=== PATIENT | female | born 1955 | race Caucasian/White ===

== ENCOUNTER 2020-05-17 09:30 | Outpatient (REF) | payer MEDICARE, OTHER, SELFPAY ==
--- NOTE | 2020-05-17 09:37 | MM_ITS ---
EXAMINATION: BONE DENSITOMETRY CLINICAL INDICATION: Menopausal. COMPARISON: This is the patient's baseline examination. TECHNIQUE: Using a TV Compass DXA System (software version: 13.1) manufactured by [employer], dual-energy x-ray absorptiometry was performed of the lumbar spine and left hip. The images are of good technical quality. Summary results are attached. FINDINGS: AP SPINE L1-L4: BMD 0.933 g/cm2, Z-score -0.3, T-score -2.1, osteopenia. LEFT FEMUR, NECK: BMD 1.007 g/cm2, Z-score 1.4, T-score -0.2, normal. LEFT FEMUR, TOTAL: BMD 0.976 g/cm2, Z-score 1.1, T-score -0.3, normal. IDENTIFIED RISK FACTORS: Early menopause, secondary osteoporosis, family history (parental hip fracture), hysterectomy. HISTORY OF FRACTURE: None listed. MEDICATIONS: Calcium supplements or multivitamin, vitamin D, ERT/SERMS. MM/XR DEXA axial skeleton IMPRESSION: 1. DIAGNOSIS: Osteopenia based on the lowest T-score value of -2.1 in the lumbar spine applying World Health Organization criteria. 2. 10-YEAR FRACTURE RISK PREDICTION, FRAX: Major osteoporotic fracture (clinical spine, forearm, hip or shoulder) 13.2%. Hip fracture 0.5%. 3. Treatment Recommendations: NOF guidelines recommend consideration for treatment in postmenopausal women and men age 50 and older presenting with the following: -A hip or vertebral (clinical or morphometric) fracture. -T-score less than or equal to -2.5 at the femoral neck or spine after appropriate evaluation to exclude secondary causes. -Low bone mass at the hip or spine and a 10-year fracture probability by FRAX of greater than or equal to 3% for hip fracture or greater than or equal to 20% for major osteoporotic fracture based on the [place] adapted WHO algorithm. 4. Other Recommendations: All treatment decisions require clinical judgment and consideration of individual patient factors, including patient preferences, comorbidities, previous drug use, risk factors not captured in the FRAX model (e.g. frailty, falls, vitamin D deficiency, increased bone turnover, interval significant decline in bone density) and possible under or overestimation of fracture risk by FRAX. Additional medical evaluation for secondary cause of low bone mineral density may be appropriate. FUTURE SCAN RECOMMENDATION: People with diagnosed cases of osteoporosis or at high risk for fracture should have regular bone mineral density tests. For patients eligible for Medicare, routine testing is allowed once every 2 years. The testing frequency can be increased to one year for patients who have rapidly progressing disease, those who are receiving or discontinuing medical therapy to restore bone mass, or have additional risk factors.
== END 2020-05-17 09:31 | disposition home or self-care (01) ==
LOC: HO.MAMMO 09:30
PROVIDERS: PCP Internal Medicine; Visit Provider Internal Medicine
DX: Z13.89 Encounter for screening for other disorder (principal)
CPT/HCPCS: 77080

== ENCOUNTER 2020-05-17 10:11 | Outpatient (REF) | payer MEDICARE, OTHER, SELFPAY ==
[2020-05-17 14:50] LABS: Alanine Aminotransferase 14 U/L (0-31); Aspartate Amino Transferase 19 U/L (5-31); Cholesterol 188 mg/dL; HDL Cholesterol 73 mg/dL; LDL Cholesterol Calculated 105 mg/dl; Triglycerides 53 mg/dL
[2020-05-17 15:10] LABS: Vitamin D 25-OH Total 52.1 ng/mL (>30)
== END 2020-05-17 10:12 | disposition home or self-care (01) ==
LOC: HO.10HDL 10:11
PROVIDERS: Visit Provider Internal Medicine
DX: E78.5 Hyperlipidemia, unspecified (principal); M81.8 Other osteoporosis without current pathological fracture
CPT/HCPCS: 77080; 80061; 82306; 84450; 84460

== ENCOUNTER 2021-01-17 06:07 | Outpatient (REF) | payer MEDICARE, OTHER, SELFPAY ==
[2021-01-17 12:22] LABS: Alanine Aminotransferase 16 U/L (0-31); Anion Gap 14 (12-20); Aspartate Amino Transferase 19 U/L (5-31); Blood Urea Nitrogen 13 mg/dL (9-16); Calcium 9.5 mg/dL (8.4-10.2); Carbon Dioxide 26 mmol/L (22-29); Chloride 106 mmol/L (96-108); Cholesterol 209 mg/dL; Estimated Glomerular Filt Rate > 60; Glucose Fasting 94 mg/dL (60-99); HDL Cholesterol 70 mg/dL; LDL Cholesterol Calculated 123 mg/dl; Sodium 142 mmol/L (135-145); Triglycerides 82 mg/dL
[2021-01-17 12:35] LABS: Vitamin D 25-OH Total 45.7 ng/mL (>30)
== END 2021-01-17 06:08 | disposition home or self-care (01) ==
LOC: HO.HMGCLDS 06:07
PROVIDERS: PCP Internal Medicine; Visit Provider Internal Medicine
DX: E78.5 Hyperlipidemia, unspecified (principal); M85.88 Other specified disorders of bone density and structure, other site; I10 Essential (primary) hypertension; Z78.0 Asymptomatic menopausal state
CPT/HCPCS: 36415; 80048; 80061; 82306; 84450; 84460

== ENCOUNTER 2021-06-15 07:43 | Day surgery (SDC) | payer MEDICARE, OTHER, SELFPAY ==
[2021-06-06 16:04] VITALS: BMI 24.4
--- NOTE | 2021-06-14 12:20 | HO.ANESPROP2 ---
Documented by User: Rose Tomas NP 06/14/21 12:21 HPI - Anesthesia Eval Consult details Narrative: 66yo F for Colonoscopy PMFSH Active Problems Active Problems: All Active Problems (Updated 01/22/21 @ 08:55 by Lilliana Dyer MD) Conjunctivitis (Acute) Osteopenia of lumbar spine (Acute) Dyslipidemia (Acute) Past Medical History Medical History Dyslipidemia Osteopenia of lumbar spine Tubular adenoma of colon Family History Family History Father Heart disease CAD (coronary artery disease) Hx of CABG Mother Arthritis Sister Breast cancer Ovarian cancer Sister CAD (coronary artery disease) Sister No problems noted. Brother No problems noted. Brother No problems noted. Brother Diabetes mellitus Brother Diabetes mellitus Surgical History Surgical History History of partial hysterectomy Hx of colonoscopy Social History Social History Alcohol intake: never Patient Tobacco Use Status: Former Tobacco user Tobacco use type: Cigarette Cigarette Packs Per Day: 1.5 Cigarettes Per Day: 10 Years Smoked: 15 e-Cigarette/Vaping Use: Never Used Second Hand Smoke Exposure: No Use of substances other than those prescribed or required for medical reasons: No Advance Directives: No Advance Directives Information Provided: Yes Meds Allergies Allergy/AdvReac Type Severity Reaction Status Date / Time No Known Allergies Allergy Verified 06/15/21 08:18 Home Medications Medication Instructions Recorded Confirmed Last Taken Type cholecalciferol (vitamin D3) 50 50 mcg PO DAILY 01/22/21 01/22/21 Unknown History mcg (2,000 unit) capsule Exam Exam Date and Time: June 14, 2021 1220 Height,Weight and Vital Signs: Height 5 ft 3 in Weight 62.596 kg Assessment and Plan Assessment Anesthesia Assessment: Chart Reviewed Documented by User: Lissy Moscoso MD 06/15/21 09:04 [facility] Past Medical History Medical History Dyslipidemia Osteopenia of lumbar spine Tubular adenoma of colon Family History Family History Father Heart disease CAD (coronary artery disease) Hx of CABG Mother Arthritis Sister Breast cancer Ovarian cancer Sister CAD (coronary artery disease) Sister No problems noted. Brother No problems noted. Brother No problems noted. Brother Diabetes mellitus Brother Diabetes mellitus Family history of problems with anesthesia: No Surgical History Surgical History History of partial hysterectomy Hx of colonoscopy History of Problems with Anesthesia: No Social History Social History Alcohol intake: never Patient Tobacco Use Status: Former Tobacco user Tobacco use type: Cigarette Cigarette Packs Per Day: 1.5 Cigarettes Per Day: 10 Years Smoked: 15 e-Cigarette/Vaping Use: Never Used Second Hand Smoke Exposure: No Use of substances other than those prescribed or required for medical reasons: No Advance Directives: No Advance Directives Information Provided: Yes Meds Allergies Allergy/AdvReac Type Severity Reaction Status Date / Time No Known Allergies Allergy Verified 06/15/21 08:18 Home Medications Medication Instructions Recorded Confirmed Last Taken Type cholecalciferol (vitamin D3) 50 50 mcg PO DAILY 01/22/21 01/22/21 Unknown History mcg (2,000 unit) capsule Exam Height,Weight and Vital Signs: Height 5 ft 3 in Weight 62.596 kg Vital Signs Temp Pulse Resp BP Pulse Ox 06/15/21 08:29 97.3 F 77 20 173/80 H 98 Airway Mallampati Class: II TM Dist: >3cm Neck ROM: Full Denture: Upper Heart: RRR Lungs: CTAB Assessment and Plan Assessment Anesthesia Assessment: Anesthesia Plan Discussed Final Anesthetic Review Family History of Problems with Anesthesia: No History of Problems with Anesthesia: No NPO: Yes ASA Class: II Final Preanesthetic Review: No Changes in Pt Med Stat, Meds/Allgs Chart Reviewed, Consent Obtained/Reviewed and Anes Risks/Benef Reviewed Patient Risk: Low Procedure Risk: Low Assessment/Block/Sedation in SS: Assess/Block/Sedation-SS Anesthetic Plan Anesthetic Plan: MAC: Disposition: Standard PACU
[2021-06-15 08:29] VITALS: BP 173/80; PULSE 77; RESP 20; TEMP 36.3; O2SAT 98
[2021-06-15] MEDS: Lactated Ringers 1,000 ML 100 ML IVCONT (08:40)
--- NOTE | 2021-06-15 09:16 | MHC.SHP ---
Pre-Procedural Eval Section A Date of Service: 06/15/21 Section B Chief Complaint: screening Details of Present Illness: see h& p no changes Relevant Family History (Specify if Yes): No Relevant Social History: None Present Medications: see Short Stay Collaborative assessment Medical History: No relevant PMH History of Previous Operations: No relevant previous surgery Allergies: Allergies Allergy/AdvReac Type Severity Reaction Status Date / Time No Known Allergies Allergy Verified 06/15/21 08:18 Review of Systems Sugical H&P ROS: Negative: Constitution, Cardiovascular, Respiratory, Neurological, Psychiatric, Hem-Onc, Allergic/Immunologic, Gastrointestinal, Genitourinary, Musculoskeletal, Integumentary, Endocrine and Eyes/Ears/Nose/Throat Exam Surgical H&P Exam: Normal: HEENT, Normal: Heart, Normal: Lungs, Normal: Extremities, Normal: Abdomen, Normal: Skin and Normal: Neurological Plan I have reviewed the history and physical and performed a pertinent physical examination on my patient. No changes have occurred unless specified.
--- NOTE | 2021-06-15 09:44 | P.BOP_ITS ---
Brief Operative Note Date of Service: 06/15/21 Pre-op diagnosis: screening Post-op diagnosis: same (colon polyp) Procedure: colonoscopy Surgeon: Manny Bates Anesthesia: MAC Was an Doll Wig Hackler used for this Procedure?: No Estimated blood loss (mL): 0 Pathology: other (polyp 15 cm) Condition: stable Disposition: PACU
[2021-06-15 09:50] VITALS: BP 103/51; PULSE 73; RESP 16; TEMP 36.6; O2SAT 98
[2021-06-15 10:05] VITALS: BP 135/71; PULSE 70; RESP 18; TEMP 36.6; O2SAT 98
--- NOTE | 2021-06-15 10:41 | OP_ITS ---
SURGEON: Manny Bates MD INDICATIONS: Colon cancer screening and prior history of adenomatous colon polyps. PREOPERATIVE DIAGNOSIS: POSTOPERATIVE DIAGNOSIS: PROCEDURE PERFORMED: Colonoscopy to the terminal ileum with snare polypectomy. ESTIMATED BLOOD LOSS: COMPLICATIONS: ANESTHESIA: ASSISTANTS: SPECIMENS: MEDICATIONS: Monitored anesthesia care. DESCRIPTION OF PROCEDURE: History and physical performed. The risks and benefits of the procedure were explained to the patient. Informed consent was obtained. The patient was placed in the left lateral decubitus position. A digital rectal exam was performed and was found to be normal. The Olympus pediatric video colonoscope was introduced into the rectum and advanced to the cecum without difficulty. The cecum was identified by transillumination, palpation, and identification of ileocecal valve. Examination was performed and the scope was removed. She tolerated the procedure well and was returned to recovery area in stable condition. FINDINGS: The terminal ileum was normal. The visualized colonic mucosa was normal. The quality of the prep was good. A single polyp at 15 cm measuring 6 mm was snared and recovered via suction. No other polyps were identified. Retroflexed examination was normal. There was scattered diverticulosis in the sigmoid and a few diverticula in the right colon. IMPRESSION: Colon polyp. RECOMMENDATION: Follow up the biopsy results. MD TANYA Curry/[place] / [id number]
== END 2021-06-15 11:04 | disposition home or self-care (01) ==
PROVIDERS: PCP Internal Medicine; Visit Provider Internal Medicine Gastroenterology
PROC: 0DJD8ZZ Inspection of Lower Intestinal Tract, Via Natural or Artificial Opening Endoscopic (ICD-10-PCS; CPT 45378; principal; 2021-06-15 09:00)
DX: Z12.11 Encounter for screening for malignant neoplasm of colon (principal); Z86.010 Personal history of colon polyps; D12.7 Benign neoplasm of rectosigmoid junction; K57.30 Diverticulosis of large intestine without perforation or abscess without bleeding; M85.88 Other specified disorders of bone density and structure, other site; E78.00 Pure hypercholesterolemia, unspecified; Z79.899 Other long term (current) drug therapy
CPT/HCPCS: 45385; 88305

== ENCOUNTER 2021-08-30 06:05 | Outpatient (REF) | payer MEDICARE, OTHER, SELFPAY ==
[2021-08-30 11:54] LABS: Alanine Aminotransferase 14 U/L (0-31); Aspartate Amino Transferase 18 U/L (5-31); Cholesterol 177 mg/dL; HDL Cholesterol 58 mg/dL; LDL Cholesterol Calculated 107 mg/dl; Triglycerides 61 mg/dL
== END 2021-08-30 06:06 | disposition home or self-care (01) ==
LOC: HO.HMGCLDS 06:05
PROVIDERS: PCP Internal Medicine; Visit Provider Internal Medicine
DX: E78.5 Hyperlipidemia, unspecified (principal); M85.88 Other specified disorders of bone density and structure, other site; Z78.0 Asymptomatic menopausal state
CPT/HCPCS: 36415; 80061; 82306; 84450; 84460

== ENCOUNTER 2021-09-28 14:30 | Outpatient (REF) | payer MEDICARE, OTHER, SELFPAY ==
--- NOTE | ~2021-09-28 | MM_ITS ---
EXAMINATION: MM SCREENING DIGITAL BREAST TOMOSYNTHESIS, BILATERAL CLINICAL INFORMATION: Screening. Asymptomatic. The lifetime risk of breast cancer based on the Tyrer-Cuzick Model is 10.3%. COMPARISON: Mammography: April 12, 2020 and studies dating back to March 02, 2018 TECHNIQUE: Digital breast tomosynthesis is performed in both the craniocaudal and mediolateral oblique views along with computer-aided detection (CAD). Synthesized 2D images are generated from the tomosynthesis. FINDINGS: The breasts are heterogeneously dense, which may obscure small masses (ACR BI-RADS breast composition Category c). There are no significant masses, abnormal calcifications, or other abnormalities. MM/MM tomosynthesis screening BI IMPRESSION: There are no significant changes from prior study. ASSESSMENT: BI-RADS 1: Negative RECOMMENDATION: Routine annual mammography screening. This patient's information was entered into a reminder system with a target due date for their next mammogram.
== END 2021-09-28 14:31 | disposition home or self-care (01) ==
LOC: HO.MAMMO 14:30
PROVIDERS: PCP Internal Medicine; Visit Provider Internal Medicine
DX: Z12.31 Encounter for screening mammogram for malignant neoplasm of breast (principal)
CPT/HCPCS: 77063; 77067

== ENCOUNTER 2022-03-04 06:09 | Outpatient (REF) | payer MEDICARE, OTHER, SELFPAY ==
[2022-03-04 11:19] LABS: MANUAL DIFF FLAG NO
[2022-03-04 11:33] LABS: Basophils Percent Auto 0.6 % (0-2); Eosinophils Absolute Auto 0.1 X10*3/uL (0.0-0.4); Eosinophils Percent Auto 1.5 % (0-4); Hematocrit 41.6 % (37.0-47.0); Hemoglobin 13.8 g/dl (12.0-16.0); Imm Gran Abs Auto 0.03 X10*3/uL (0.00-0.03); Imm Gran Pct Auto 0.4 % (0.0-0.4); Lymphocytes Absolute Auto 2.6 X10*3/uL (1.2-4.9); Lymphocytes Percent Auto 35.8 % (20-40); Mean Corpuscular HGB Conc 33.2 g/dl (31.0-35.0); Mean Corpuscular Hemoglobin 30.6 pg (27.0-33.0); Mean Corpuscular Volume 92.2 fL (80.0-98.0); Mean Platelet Volume 10.4 fL (9.4-12.3); Monocytes Absolute Auto 0.6 X10*3/uL (0.1-1.2); Monocytes Percent Auto 7.8 % (2-11); Neutrophils Absolute Auto 3.9 x10*3/uL (2.0-8.3); Neutrophils Percent Auto 53.9 % (45-73); Platelet Count 262 X10*3/uL (160-400); Red Blood Count 4.51 X10*6/uL (4.20-5.50); Red Cell Distribution Width 12.5 % (11.0-16.0); White Blood Count 7.2 X10*3/uL (4.8-10.8)
[2022-03-04 12:06] LABS: Alanine Aminotransferase 13 U/L (0-31); Anion Gap 15 (12-20); Aspartate Amino Transferase 15 U/L (5-31); Blood Urea Nitrogen 12 mg/dL (9-16); Calcium 9.3 mg/dL (8.4-10.2); Carbon Dioxide 28 mmol/L (22-29); Chloride 102 mmol/L (96-108); Cholesterol 169 mg/dL; Estimated Glomerular Filt Rate > 60; Glucose Fasting 92 mg/dL (60-99); HDL Cholesterol 65 mg/dL; LDL Cholesterol Calculated 90 mg/dl; Potassium 3.8 mmol/L (3.3-5.1); Sodium 141 mmol/L (135-145); Triglycerides 72 mg/dL
[2022-03-04 12:14] LABS: Vitamin D 25-OH Total 57.9 ng/mL (>30)
== END 2022-03-04 06:10 | disposition home or self-care (01) ==
LOC: HO.HMGCLDS 06:09
PROVIDERS: PCP Internal Medicine; Visit Provider Internal Medicine
DX: M85.88 Other specified disorders of bone density and structure, other site (principal); E78.5 Hyperlipidemia, unspecified
CPT/HCPCS: 36415; 80048; 80061; 82306; 84450; 84460; 85025

== ENCOUNTER 2022-05-24 07:58 | Outpatient (REF) | payer MEDICARE, OTHER, SELFPAY ==
--- NOTE | ~2022-05-24 | MM_ITS ---
EXAMINATION: BONE DENSITOMETRY CLINICAL INDICATION: Osteopenia. COMPARISON: Baseline BD dated 05/17/2012. TECHNIQUE: Using a [employer] DXA System (software version: 13.1) manufactured by [employer], dual-energy x-ray absorptiometry was performed of the lumbar spine and left hip. The images are of good technical quality. Summary results are attached. FINDINGS: AP SPINE L1-L4: Current: BMD 0.935 g/cm2, Z-score -0.2, T-score -2.0, osteopenia, 0.2% increase from baseline (<5% change is not significant). Baseline: BMD 0.933 g/cm2. LEFT FEMUR, NECK: Current: BMD 0.976 g/cm2, Z-score -1.3, T-score -0.4, normal. Baseline: BMD 1.007 g/cm2. LEFT FEMUR, TOTAL: Current: BMD 0.927 g/cm2, Z-score 0.9, T-score -0.6, normal, 5.0% decrease from baseline (<5% change is not significant). Baseline: BMD 0.976 g/cm2. IDENTIFIED RISK FACTORS: Early menopause, family history (parent hip fracture), hysterectomy, osteoporosis, secondary osteoporosis. HISTORY OF FRACTURE: None listed. MEDICATIONS: Calcium, vitamin D, ERT/SERMS. MM/XR DEXA axial skeleton IMPRESSION: 1. DIAGNOSIS: Osteopenia based on the lowest T-score value of -2.0 in the lumbar spine applying World Health Organization criteria. 2. 10-YEAR FRACTURE RISK PREDICTION, FRAX: Not performed in this patient on estrogen or bone building treatments. 3. Treatment Recommendations: NOF guidelines recommend consideration for treatment in postmenopausal women and men age 50 and older presenting with the following: -A hip or vertebral (clinical or morphometric) fracture. -T-score less than or equal to -2.5 at the femoral neck or spine after appropriate evaluation to exclude secondary causes. -Low bone mass at the hip or spine and a 10-year fracture probability by FRAX of greater than or equal to 3% for hip fracture or greater than or equal to 20% for major osteoporotic fracture based on the [place] adapted WHO algorithm. 4. Other Recommendations: All treatment decisions require clinical judgment and consideration of individual patient factors, including patient preferences, comorbidities, previous drug use, risk factors not captured in the FRAX model (e.g. frailty, falls, vitamin D deficiency, increased bone turnover, interval significant decline in bone density) and possible under or overestimation of fracture risk by FRAX. Additional medical evaluation for secondary cause of low bone mineral density may be appropriate. FUTURE SCAN RECOMMENDATION: People with diagnosed cases of osteoporosis or at high risk for fracture should have regular bone mineral density tests. For patients eligible for Medicare, routine testing is allowed once every 2 years. The testing frequency can be increased to one year for patients who have rapidly progressing disease, those who are receiving or discontinuing medical therapy to restore bone mass, or have additional risk factors.
== END 2022-05-24 07:59 | disposition home or self-care (01) ==
LOC: HO.MAMMO 07:58
PROVIDERS: PCP Internal Medicine; Visit Provider Internal Medicine
DX: Z13.820 Encounter for screening for osteoporosis (principal); Z78.0 Asymptomatic menopausal state; M85.88 Other specified disorders of bone density and structure, other site
CPT/HCPCS: 77080

== ENCOUNTER 2022-07-09 11:18 | Outpatient (REF) | payer MEDICARE, OTHER, SELFPAY ==
[2022-07-09 12:13] LABS: Influenza A PCR NEGATIVE (Negative); Influenza B PCR NEGATIVE (Negative); Resp Syncy Virus RNA Qual PCR NEGATIVE (Negative); SARS COV2 PCR INHOUSE NEGATIVE (Negative)
== END 2022-07-09 11:19 | disposition home or self-care (01) ==
LOC: HO.LNP 11:18
PROVIDERS: Visit Provider Physician Assistant
DX: Z20.822 Contact with and (suspected) exposure to COVID-19 (principal); B34.9 Viral infection, unspecified
CPT/HCPCS: 0241U

== ENCOUNTER 2022-09-02 07:04 | Outpatient (REF) | payer MEDICARE, SELFPAY ==
[2022-09-02 11:30] LABS: Alanine Aminotransferase 16 U/L (0-31); Aspartate Amino Transferase 20 U/L (5-31); Cholesterol 179 mg/dL; HDL Cholesterol 60 mg/dL; LDL Cholesterol Calculated 105 mg/dl; Triglycerides 70 mg/dL
[2022-09-02 11:36] LABS: Vitamin D 25-OH Total 55.5 ng/mL (>30)
== END 2022-09-02 07:05 | disposition home or self-care (01) ==
LOC: HO.HMGCLDS 07:04
PROVIDERS: PCP Internal Medicine; Visit Provider Internal Medicine
DX: M85.88 Other specified disorders of bone density and structure, other site (principal); N95.9 Unspecified menopausal and perimenopausal disorder; E78.5 Hyperlipidemia, unspecified
CPT/HCPCS: 36415; 80061; 82306; 84450; 84460

== ENCOUNTER 2022-10-04 16:21 | Outpatient (REF) | payer MEDICARE, SELFPAY ==
--- NOTE | ~2022-10-04 | MM_ITS ---
EXAMINATION: MM SCREENING DIGITAL BREAST TOMOSYNTHESIS, BILATERAL CLINICAL INFORMATION: Screening. Asymptomatic. The lifetime risk of breast cancer based on the Tyrer-Cuzick Model is 10%. COMPARISON: Mammography: 09/28/2021, 04/12/2020; outside mammography 03/03/2019 ([facility]). TECHNIQUE: Digital breast tomosynthesis is performed in both the craniocaudal and mediolateral oblique views along with computer-aided detection (CAD). Synthesized 2D images are generated from the tomosynthesis. FINDINGS: The breasts are heterogeneously dense, which may obscure small masses (ACR BI-RADS breast composition Category c). There are no significant masses, abnormal calcifications, or other abnormalities. Parenchymal pattern is similar to prior studies. There is no developing density or architectural abnormality. The axilla and skin contours are unremarkable. No significant changes. MM/MM tomosynthesis screening BI IMPRESSION: No mammographic evidence of malignancy. ASSESSMENT: BI-RADS 1: Negative RECOMMENDATION: Routine annual mammography screening. This patient's information was entered into a reminder system with a target due date for their next mammogram.
== END 2022-10-04 16:22 | disposition home or self-care (01) ==
LOC: HO.MAMMO 16:21
PROVIDERS: PCP Internal Medicine; Visit Provider Internal Medicine
DX: Z12.31 Encounter for screening mammogram for malignant neoplasm of breast (principal)
CPT/HCPCS: 77063; 77067

== ENCOUNTER 2023-03-04 07:55 | Outpatient (AMB) | payer MEDICARE, SELFPAY ==
[2023-03-04 07:58] VITALS: BP 130/70; PULSE 88; O2SAT 98; BMI 23.7
--- NOTE | 2023-03-04 07:58 | MHC.PC.OV ---
Vital Signs 03/04/23 07:58 Height 5 ft 3 in Weight 134 lb BMI 23.7 BP 130/70 Blood Pressure Location Lt brachial Position Sitting Pulse 88 Pulse Source Pulse Oximeter Pulse Oximetry (%) 98 Oxygen Delivery Method Room Air Intake Visit Reasons: Annual PE Intake Note: pt is here for annual physical exam [employer] Operator Required: No Accompanied by: Self / Same As Patient Allergies No Known Allergies Allergy (Verified 03/04/23 08:05) Medication List - Last Reconciled 03/04/23 by Lilliana Dyer MD atorvastatin 10 mg PO DAILY cholecalciferol (vitamin D3) 50 mcg PO DAILY raloxifene 60 mg PO DAILY Tobacco use date assessed: 09/03/22 Fall risk assessment: No Falls in past year Last assessed Fall Risk: 03/04/23 Dental Screening Dental Screen Date: 03/04/23 Did you have a dental visit in the last 12 months?: Yes Did you have a dental problem in the last 6 months where you did not have access to dental care?: No Was dental information given to patient?: Patient has dentist HPI Annual PE HPI Details 67-year-old lady here today for physical exam. She has dyslipidemia currently on atorvastatin 10 mg daily, compliant with low-cholesterol diet and has been getting regular exercise. She also has osteopenia in the lumbar spine currently on raloxifene 60 mg daily and has been taking vitamin-D 3 at 50 mcg daily. She is up-to-date with her screening colonoscopy due again in 2025. Up-to-date with her regular eye exams, and goes to the dentist every 6 months for her routine dental prophylaxis. [facility] Medical History Dyslipidemia Osteopenia of lumbar spine Tubular adenoma of colon Surgical History History of partial hysterectomy Hx of colonoscopy Family History Father Heart disease CAD (coronary artery disease) Hx of CABG Mother Arthritis Sister Breast cancer Ovarian cancer Sister CAD (coronary artery disease) Sister No problems noted. Brother No problems noted. Brother No problems noted. Brother Diabetes mellitus Brother Diabetes mellitus Social History Housing: House Alcohol intake: never Patient Tobacco Use Status: Former Tobacco user Tobacco use type: Cigarette Cigarette Packs Per Day: 1.5 Cigarettes Per Day: 10 Years Smoked: 15 e-Cigarette/Vaping Use: Never Used Second Hand Smoke Exposure: No service: No Current occupational status: employed Cognitive needs: No Hearing needs: No Vision needs: No Female Reproductive History Menstrual Menopause type: surgical Questionnaire PHQ-9 Over the last 2 weeks, how often have you been bothered by any of the following problems? 1. Little interest or pleasure in doing things: not at all 2. Feeling down, depressed, or hopeless: not at all 3. Trouble falling or staying asleep, or sleeping too much: not at all 4. Feeling tired or having little energy: not at all 5. Poor appetite or overeating: not at all 6. Feeling bad about yourself - or that you are a failure or have let yourself or your family down: not at all 7. Trouble concentrating on things, such as reading the newspaper or watching television: not at all 8. Moving or speaking so slowly that other people could have noticed. Or the opposite - being so fidgety or restless that you have been moving around a lot more than usual: not at all 9. Thoughts that you would be better off or of hurting yourself in some way: not at all Total score: 0 Depression Screening Interpretation: Negative 35565 - PHQ-9 Billing: Yes Source: Developed by Drs. Xavi Garcia, Aide Sheehan, Chavo Sewell and colleagues, with an educational yordan from [employer]. Thrive Questionnaire Date Thrive assessed: 03/04/23 I am a: Patient What is your living situation today?: I have a steady place to live Within the past 12 months, did the food you bought not last and you didn't have the money to get more?: Never true Within the past 12 months, did you worry whether your food would run out before you got money to buy more?: Never true Do you have trouble paying for medicines?: No Do you have trouble getting transportation to medical appointments?: No Do you have trouble paying your heating and electricity bill?: No Do you have trouble taking care of your child, family member or friend?: No Do you have trouble with day-to-day activities such as bathing, preparing meals, shopping, managing finances, etc.?: No Are you currently unemployed and looking for a job?: No Are you interested in more education?: No Please select the resources that you would like help with: None Currently or been in a relationship where the following occur: no concerns reported AUDIT C Alcohol Use Questionnaire (AUDIT-C) 1. How often do you have a drink containing alcohol?: Never Total Score: 0 GRAYSON-7 AMB Questionnaire GRAYSON-7 Date GRAYSON - 7 assessed: 03/04/23 Feeling nervous, anxious, or on edge: 0 = Not at all Not being able to stop or control worryin = Not at all Worrying too much about different things: 0 = Not at all Trouble relaxin = Not at all Being so restless that it is hard to sit still: 0 = Not at all Becoming easily annoyed or irritable: 0 = Not at all Feeling afraid as if something awful might happen: 0 = Not at all Total GRAYSON-7 score (0-4 normal; 5-9 mild; 10-14 moderate; 15-21 severe): 0 Source: Developed by Drs. Xavi Garcia, Aide Sheehan, Chavo Sewell and colleagues, with an educational yordan from [employer]. GRAYSON-7 Assessment Billing GRAYSON-7 Assessment Tool: GRAYSON-7 Assessment 35122 Review of Systems Const Denies body aches, Denies fatigue, Denies fever(s), Denies headache(s) and Denies weakness Eyes Details: sees Zoie Jason in [facility] with eye exam Denies change in vision ENT Denies dizziness, Denies headache(s), Denies nasal congestion, Denies nasal discharge and Denies sore throat Card Denies chest pain, Denies lightheadedness, Denies palpitations and Denies dyspnea Resp Denies chest congestion, Denies cough, Denies dyspnea and Denies wheezing GI Denies abdominal pain, Denies change in bowel habits and Denies heartburn Denies urinary frequency, Denies dysuria and Denies urinary urgency Musc Reports no additional complaints Skin/Breast Denies lesions and Denies rash Neuro Denies dizziness, Denies headache(s) and Denies weakness Psych Reports no additional complaints Endo Denies fatigue, Denies polydipsia, Denies polyuria and Denies palpitations Duane/Lymph Denies easy bruising Aller/Immun Denies seasonal rhinorrhea and Denies wheezing Physical exam (Primary Care) Vital Signs: Last Vital Signs Pulse 88 03/04/23 07:58 BP 130/70 03/04/23 07:58 Pulse Ox 98 03/04/23 07:58 Oxygen Delivery Method Room Air 03/04/23 07:58 BMI result Body Mass Index 23.7 Tobacco/Smoking Status: Tobacco use Status Tobacco use date assessed 09/03/22 03/04/23 08:01 Patient Tobacco Use Status Former Tobacco user 03/04/23 08:01 Tobacco use type Cigarette 03/04/23 08:01 e-Cigarette/Vaping Use Never Used 03/04/23 08:01 PHQ-9: PHQ-9 Score PHQ-9: Total score 0 03/04/23 08:04 Depression Screening Interpretation: Negative Thrive Assessment: Date of Thrive Assessment Date Thrive assessed 03/04/23 03/04/23 08:04 Currently or been in a relationship where the following occur: no concerns reported Const Other: Alert oriented x3, no acute distress, ambulatory normal gait Orientation/consciousness: patient oriented x3 HENMT Head: Yes atraumatic Ears: external ears normal, TM's normal bilaterally and EAC's normal General nose exam: Normal external nose present Face and sinus: Yes face symmetric Mouth: Normal oral and palatal mucosa present and moist mucous membranes Teeth and gingiva: dentures (Upper) Eyes General: appearance normal, both eyes and all related structures Neck Neck: Yes full ROM, Yes no lymphadenopathy and Yes supple Thyroid: Thyroid normal Chest Chest palpation & inspection: normal inspection of the chest Breast/axilla palpation: normal palpation of the breasts and normal palpation of the axillae Resp Effort & Inspection: normal respiratory effort and able to speak in complete sentences Auscultation: clear to auscultation bilaterally Cardio Palpation: normal PMI Rate: regular rate Rhythm: regular rhythm Heart sounds: S1 normal heart sound present and S2 normal heart sound present GI Palpation (GI): Soft to palpation, nontender, no guarding and no masses Auscultation: normal bowel sounds General: Yes deferred Back/Spine/Pelvis Back: No back tenderness Skin General skin exam: no rashes or lesions noted Neuro General: patient oriented x3, gait normal, moves all extremities, Normal light touch and pain sensation, no focal motor deficits and CN's II-XI intact bilaterally Extrem General: Yes full ROM, Yes no joint enlargement, Yes no pedal edema and Yes normal gait Psych Appearance: grossly normal Mental Status: mental status grossly normal Speech and movement: Normal speech and movement present Affect: normal affect Attitude: cooperative Assessment and Plan Assessment & Plan (1) Annual visit for general adult medical examination with abnormal findings: Code(s): Z00.01 - Encounter for general adult medical examination with abnormal findings Plan: Will check appropriate labs. Recommended dental visit every 6 months and regular eye exams, at least every 2 years. Take adequate calcium in diet and vitamin-D 3 at 2000 IU per cap once a day, in addition to weight-bearing exercises to help maintain good muscle tone and weight control. Instructed to do self-breast exam, and continue with yearly mammogram, currently up-to-date, up-to-date with her bone density scan, repeat due again in 2023. She is also up-to-date with her screening colonoscopy, and has had all her adult vaccinations, reminded to get the new COVID booster vaccine (2) Osteopenia of lumbar spine: Comment: DEXA scan 2021, showed a T-score of-2.0 and lumbar spine, normal in hips and left femoral neck Code(s): M85.88 - Other specified disorders of bone density and structure, other site Plan: Continue with vitamin-D 3 and raloxifene 60 mg daily in addition to doing regular weight-bearing exercise, repeat another bone density scan next year (3) Dyslipidemia: Code(s): E78.5 - Hyperlipidemia, unspecified Plan: Repeat fasting lipid panel ordered . Continue with atorvastatin 10 mg daily , in addition to adherence to low-cholesterol diet and regular exercise, at least 30 minutes 3 to 4 times a week. Advised patient to make healthy food choices, eat more fruits, vegetables, whole grains, wild caught fish and low-fat dairy. Limit amount of meat and fried or fatty food products, as well as processed foods and fast foods. Orders: Orders Alanine Aminotransferase Today E78.5 - Hyperlipidemia, unspecified, M85.88 - Other specified disorders of bone density and structure, other site, Z00.01 - Encounter for general adult medical examination with abnormal findings Aspartate Amino Transferase Today E78.5 - Hyperlipidemia, unspecified, M85.88 - Other specified disorders of bone density and structure, other site, Z00.01 - Encounter for general adult medical examination with abnormal findings Lipid Panel Today E78.5 - Hyperlipidemia, unspecified, M85.88 - Other specified disorders of bone density and structure, other site, Z00.01 - Encounter for general adult medical examination with abnormal findings Vitamin D 25-OH Total Today E78.5 - Hyperlipidemia, unspecified, M85.88 - Other specified disorders of bone density and structure, other site, Z00.01 - Encounter for general adult medical examination with abnormal findings Glucose Fasting Today E78.5 - Hyperlipidemia, unspecified, M85.88 - Other specified disorders of bone density and structure, other site, Z00.01 - Encounter for general adult medical examination with abnormal findings Medications: Refilled atorvastatin 10 mg PO DAILY 90 caps 3RF raloxifene 60 mg PO DAILY 90 caps 3RF Coding Level of Care Code Est Pt Prev Care >65y(42765) Diagnoses Annual visit for general adult medical examination with abnormal findings Z00.01 Osteopenia of lumbar spine M85.88 Dyslipidemia E78.5 Additional Codes GRAYSON-7 Assessment Billing - GRAYSON-7 Assessment Tool: GRAYSON-7 Assessment 37935 ([id number])
== END 2023-03-04 08:46 | disposition home or self-care (01) ==
PROVIDERS: PCP Internal Medicine; Visit Provider Internal Medicine
DX: Z00.01 Encounter for general adult medical examination with abnormal findings (principal); M85.88 Other specified disorders of bone density and structure, other site; E78.5 Hyperlipidemia, unspecified
CPT/HCPCS: 99397

== ENCOUNTER 2023-03-04 08:29 | Outpatient (REF) | payer MEDICARE, SELFPAY ==
[2023-03-04 11:50] LABS: Alanine Aminotransferase 15 U/L (0-31); Aspartate Amino Transferase 19 U/L (5-31); Cholesterol 156 mg/dL (<200); Glucose Fasting 113 mg/dL (60-99); HDL Cholesterol 48 mg/dL (>40); LDL Cholesterol Calculated 87 mg/dL (<100); Triglycerides 106 mg/dL (<150)
[2023-03-04 12:09] LABS: Vitamin D 25-OH Total 95.8 ng/mL (>30)
== END 2023-03-04 08:30 | disposition home or self-care (01) ==
LOC: HO.HMGCLDS 08:29
PROVIDERS: PCP Internal Medicine; Visit Provider Internal Medicine
DX: Z00.01 Encounter for general adult medical examination with abnormal findings (principal); E78.5 Hyperlipidemia, unspecified; M85.88 Other specified disorders of bone density and structure, other site
CPT/HCPCS: 36415; 80061; 82306; 82947; 84450; 84460

== ENCOUNTER 2023-10-10 07:27 | Outpatient (REF) | payer MEDICARE, SELFPAY | END 2023-10-10 07:28 | disposition home or self-care (01) | LOC: HO.MAMMO 07:27 | PROVIDERS: PCP Internal Medicine; Visit Provider Internal Medicine | DX: Z12.31 Encounter for screening mammogram for malignant neoplasm of breast (principal) | CPT/HCPCS: 77063; 77067 ==

== ENCOUNTER → 2023-10-10 07:45 | Outpatient (BNV) | payer MEDICARE, SELFPAY | PROVIDERS: PCP Internal Medicine; Visit Provider Radiology Diagnostic Radiology | DX: Z12.31 Encounter for screening mammogram for malignant neoplasm of breast (principal) | CPT/HCPCS: 77063; 77067 ==

== ENCOUNTER 2023-11-05 06:11 | Outpatient (REF) | payer MEDICARE, SELFPAY ==
[2023-11-05 10:52] LABS: Estimated Average Glucose 114 mg/dL; Hemoglobin A1c % 5.6 % (<6.0); Total Hemoglobin (HGBA1C) 3395.0271 umol/L
[2023-11-05 11:11] LABS: Alanine Aminotransferase 13 U/L (0-31); Anion Gap 12 (12-20); Aspartate Amino Transferase 18 U/L (5-31); Blood Urea Nitrogen 16 mg/dL (9-16); Calcium 9.2 mg/dL (8.4-10.2); Carbon Dioxide 29 mmol/L (22-29); Chloride 103 mmol/L (96-108); Cholesterol 176 mg/dL (<200); Estimated Glomerular Filt Rate > 60; Glucose Fasting 88 mg/dL (60-99); HDL Cholesterol 63 mg/dL (>40); LDL Cholesterol Calculated 100 mg/dL (<100); Potassium 3.7 mmol/L (3.3-5.1); Sodium 140 mmol/L (135-145); Triglycerides 65 mg/dL (<150)
== END 2023-11-05 06:12 | disposition home or self-care (01) ==
LOC: HO.HMGCLDS 06:11
PROVIDERS: PCP Internal Medicine; Visit Provider Internal Medicine
DX: M85.88 Other specified disorders of bone density and structure, other site (principal); E78.5 Hyperlipidemia, unspecified; R73.01 Impaired fasting glucose; Z78.0 Asymptomatic menopausal state
CPT/HCPCS: 36415; 80048; 80061; 82306; 83036; 84450; 84460

== ENCOUNTER 2023-11-07 08:56 | Outpatient (AMB) | payer MEDICARE, SELFPAY ==
[2023-11-07 09:42] VITALS: BP 138/70; PULSE 73; O2SAT 93; BMI 24.8
--- NOTE | 2023-11-07 09:42 | A.OFFPC_ITS ---
Vital Signs 11/07/23 09:42 Height 5 ft 3 in Weight 140 lb BMI 24.8 BP 138/70 Blood Pressure Location Lt brachial Position Sitting Pulse 73 Pulse Source Pulse Oximeter Pulse Oximetry (%) 93 Oxygen Delivery Method Room Air Intake Visit Reasons: 6 months follow-up Intake Note: Pt is here today for her 8 mo. f/u Allergies No Known Allergies Allergy (Verified 11/07/23 10:02) Medication List - Last Reconciled 11/07/23 by Lilliana Dyer MD atorvastatin 10 mg PO DAILY cholecalciferol (vitamin D3) 50 mcg PO DAILY raloxifene 60 mg PO DAILY Tobacco use date assessed: 11/07/23 Fall risk assessment: No Falls in past year Last assessed Fall Risk: 11/07/23 Dental Screening Dental Screen Date: 03/04/23 Did you have a dental visit in the last 12 months?: Yes Did you have a dental problem in the last 6 months where you did not have access to dental care?: No Was dental information given to patient?: Patient has dentist HPI HPI Comments History of Present Illness Details 68-year-old lady history of dyslipidemia and osteopenia of lumbar spine, here today for follow-up. She has been feeling well, with no complaints at present time. Last bone density done in 2021 showed presence of osteopenia in lumbar spine, due for a recheck. PFSH Medical History Tubular adenoma of colon Osteopenia of lumbar spine Dyslipidemia Surgical History Hx of colonoscopy History of partial hysterectomy Family History Father Heart disease CAD (coronary artery disease) Hx of CABG Mother Arthritis Sister Breast cancer Ovarian cancer Sister CAD (coronary artery disease) Sister No problems noted. Brother No problems noted. Brother No problems noted. Brother Diabetes mellitus Brother Diabetes mellitus Social History Housing: House Alcohol intake: never Patient Tobacco Use Status: Former Tobacco user Tobacco use type: Cigarette Cigarette Packs Per Day: 1.5 Cigarettes Per Day: 10 Years Smoked: 15 e-Cigarette/Vaping Use: Never Used Second Hand Smoke Exposure: No service: No Current occupational status: employed Cognitive needs: No Hearing needs: No Vision needs: No Questionnaire PHQ-9 Over the last 2 weeks, how often have you been bothered by any of the following problems? 1. Little interest or pleasure in doing things: not at all 2. Feeling down, depressed, or hopeless: not at all 3. Trouble falling or staying asleep, or sleeping too much: not at all 4. Feeling tired or having little energy: not at all 5. Poor appetite or overeating: not at all 6. Feeling bad about yourself - or that you are a failure or have let yourself or your family down: not at all 7. Trouble concentrating on things, such as reading the newspaper or watching television: not at all 8. Moving or speaking so slowly that other people could have noticed. Or the opposite - being so fidgety or restless that you have been moving around a lot more than usual: not at all 9. Thoughts that you would be better off or of hurting yourself in some way: not at all Total score: 0 Depression Screening Interpretation: Negative Depression Screening Done: Yes 91779 - PHQ-9 Billing: Yes Source: Developed by Drs. Xavi Garcia, Aide Sheehan, Chavo Sewell and colleagues, with an educational yordan from [employer]. Thrive Questionnaire Date Thrive assessed: 11/07/23 I am a: Patient What is your living situation today?: I have a steady place to live Within the past 12 months, did the food you bought not last and you didn't have the money to get more?: Never true Within the past 12 months, did you worry whether your food would run out before you got money to buy more?: Never true Do you have trouble paying for medicines?: No Do you have trouble getting transportation to medical appointments?: No Do you have trouble paying your heating and electricity bill?: No Do you have trouble taking care of your child, family member or friend?: No Do you have trouble with day-to-day activities such as bathing, preparing meals, shopping, managing finances, etc.?: No Are you currently unemployed and looking for a job?: No Are you interested in more education?: No Currently or been in a relationship where the following occur: no concerns reported THRIVE Score: 0 AUDIT C Alcohol Use Questionnaire (AUDIT-C) 1. How often do you have a drink containing alcohol?: Never 3. How often do you have six or more drinks on one occasion?: Never Total Score: 0 GRAYSON-7 AMB Questionnaire GRAYSON-7 Date GRYASON - 7 assessed: 11/07/23 Feeling nervous, anxious, or on edge: 0 = Not at all Not being able to stop or control worryin = Not at all Worrying too much about different things: 0 = Not at all Trouble relaxin = Not at all Being so restless that it is hard to sit still: 0 = Not at all Becoming easily annoyed or irritable: 0 = Not at all Feeling afraid as if something awful might happen: 0 = Not at all Total GRAYSON-7 score (0-4 normal; 5-9 mild; 10-14 moderate; 15-21 severe): 0 Source: Developed by Drs. Xavi Garcia, Aide Sheehan, Chavo Sewell and colleagues, with an educational yordan from [employer]. GRAYSON-7 Assessment Billing GRAYSON-7 Assessment Tool: GRAYSON-7 Assessment 83012 Review of Systems Const Denies body aches, Denies fatigue, Denies fever(s), Denies headache(s) and Denies weakness Eyes Details: sees Zoie Jason in [facility] with eye exam Denies change in vision ENT Denies dizziness, Denies headache(s), Denies nasal congestion, Denies nasal discharge and Denies sore throat Card Denies chest pain, Denies lightheadedness, Denies palpitations and Denies dyspnea Resp Denies chest congestion, Denies cough, Denies dyspnea and Denies wheezing GI Denies abdominal pain, Denies change in bowel habits and Denies heartburn Denies urinary frequency, Denies dysuria and Denies urinary urgency Musc Reports no additional complaints Skin/Breast Denies lesions and Denies rash Neuro Denies dizziness, Denies headache(s) and Denies weakness Psych Reports no additional complaints Endo Denies fatigue, Denies polydipsia, Denies polyuria and Denies palpitations Duane/Lymph Denies easy bruising Aller/Immun Denies seasonal rhinorrhea and Denies wheezing Physical exam (Primary Care) Vital Signs: Last Vital Signs Pulse 73 11/07/23 09:42 BP 138/70 11/07/23 09:42 Pulse Ox 93 11/07/23 09:42 Oxygen Delivery Method Room Air 11/07/23 09:42 BMI result Body Mass Index 24.8 Tobacco/Smoking Status: Tobacco use Status Tobacco use date assessed 11/07/23 11/07/23 09:45 Patient Tobacco Use Status Former Tobacco user 11/07/23 09:45 Tobacco use type Cigarette 11/07/23 09:45 e-Cigarette/Vaping Use Never Used 11/07/23 09:45 PHQ-9: PHQ-9 Score PHQ-9: Total score 0 11/07/23 11:04 Depression Screening Interpretation: Negative Thrive Assessment: Date of Thrive Assessment Date Thrive assessed 11/07/23 11/07/23 09:55 Currently or been in a relationship where the following occur: no concerns reported Advance Care Planning discussion: Completed/Scanned Date of discussion: 11/07/23 Who was present: Patient Forms completed: Health Care Proxy Time spent: 16-45 minutes Actual minutes spent: 16 Const Other: Alert oriented x3, no acute distress, ambulatory normal gait Orientation/consciousness: patient oriented x3 HENMT Head: Yes atraumatic Ears: external ears normal, TM's normal bilaterally and EAC's normal General nose exam: Normal external nose present Face and sinus: Yes face symmetric Mouth: Normal oral and palatal mucosa present and moist mucous membranes Teeth and gingiva: dentures (Upper) Eyes General: appearance normal, both eyes and all related structures Neck Neck: Yes full ROM, Yes no lymphadenopathy and Yes supple Thyroid: Thyroid normal Chest Chest palpation & inspection: normal inspection of the chest Breast/axilla palpation: normal palpation of the breasts and normal palpation of the axillae Resp Effort & Inspection: normal respiratory effort and able to speak in complete sentences Auscultation: clear to auscultation bilaterally Cardio Palpation: normal PMI Rate: regular rate Rhythm: regular rhythm Heart sounds: S1 normal heart sound present, S2 normal heart sound present, Clic manohar heart sound present (Faint Systolic murmur left sternal border) and Murmur heart sound present GI Palpation (GI): Soft to palpation, nontender, no guarding and no masses Auscultation: normal bowel sounds General: Yes deferred Back/Spine/Pelvis Back: No back tenderness Skin General skin exam: no rashes or lesions noted Neuro General: patient oriented x3, gait normal, moves all extremities, Normal light touch and pain sensation, no focal motor deficits and CN's II-XI intact bilaterally Extrem General: Yes full ROM, Yes no joint enlargement, Yes no pedal edema and Yes normal gait Psych Appearance: grossly normal and well kempt Mental Status: mental status grossly normal Speech and movement: Normal speech and movement present Affect: normal affect Attitude: cooperative Thought process: Normal thought process present Immunizations pneumoc 20-yumi conj-dip cr(PF) 0.5 mL IM syringe Performing Provider: Lilliana Dyer MD Performing Location: [facility] Administered by: Kalyn Geller CMA on 11/07/23 11:03 Dose Route Admin Location Dispensed Lot Number Expiration Date NDC [employer] 0.5 mL IM Left Deltoid 0.5 mL [id number] 10/11/24 6161-1056-07 [employer] VIS Given Date VIS Provided VIS Publication Date 11/07/23 Single Vaccine 21 Eligibility Eligibility Date Funding Source Not VFC Eligible 11/07/23 Private Results Reviewed Results Reviewed: Laboratory Tests 11/05/23 06:20 Estimat Average Glucose 114 Hemoglobin A1c % 5.6 Name: Adrianna Thomas Age/Sex: 68/F : 1955 Unit#: [id number] Attend Dr: Lilliana Dyer MD Re11/05/23 Status: DEP REF Location: [facility] Disch: SPEC : [id number] MARIBEL: 11/05/23 STATUS: COMP REQ : [id number] RECD: 11/05/23-[address]: Lilliana Dyer MD COMP: 11/05/231120 ENTERED: 11/05/[address]: ORDERED: Met Prof Fast, AST, ALT, Lipid Panel, Vitamin D 25-OH Test Result Flag Reference Sodium 140 135-145 mmol/L Potassium 3.7 3.3-5.1 mmol/L CL 103 96-108 mmol/L CO2 29 22-29 mmol/L Gap 12 12-20 BUN 16 9-16 mg/dL Creat 0.75 0.5-1.4 mg/dL EGFR > 60 NOTE: For -Chinese individuals, multiply the result by 1.210. Chronic Kidney Disease: Estimated GFR < 60 mL/min/1.73m2 Severe Kidney Disease: Estimated GFR < 15 mL/min/1.73m2 FBS 88 60-99 mg/dL CA 9.2 8.4-10.2 mg/dL AST (GOT) 18 5-31 U/L ALT (GPT) 13 0-31 U/L Triglyceride 65 <150 mg/dL Desirable Triglyceride: less than 150 mg/dL Borderline High Triglyceride 150-199 mg/dL High Triglyceride: 200-499 mg/dL Very High Triglyceride: greater than or equal to 5OO mg/dL Cholesterol 176 <200 mg/dL Desirable Cholesterol: less than 200 mg/dL Borderline High Cholesterol: 200-239 mg/dL High Cholesterol: greater than 239 mg/dL LDL Calculated 100 H <100 mg/dL Desirable LDL: less than 100 mg/dL Near Optimal/Above Optimal LDL: 110-129 mg/dL Borderline High LDL: 130-159 mg/dL High LDL: 160-189 mg/dL Very High LDL: greater than or equal to 190 mg/dL HDL 63 >40 mg/dL Desirable HDL: greater than 40 mg/dL Note: This HDL assay may give artificially low results in patients with liver disease. Vit D 25-OH Tot 83.0 >30 ng/mL Health Based Reference Values* < 20 ng/mL Deficient 20-30 ng/mL Insufficient > 30 ng/mL Sufficient Assessment and Plan Assessment & Plan (1) Cardiac murmur: Code(s): R01.1 - Cardiac murmur, unspecified Plan: Complete transthoracic echocardiogram ordered (2) Osteopenia of lumbar spine: Comment: DEXA scan 2021, showed a T-score of-2.0 and lumbar spine, normal in hips and left femoral neck Code(s): M85.88 - Other specified disorders of bone density and structure, other site Plan: Ordered a bone density scan to be done together with next mammogram in October 2024. Continue raloxifene, in addition to vitamin-D 3 supplements and regular weight-bearing exercise. (3) Dyslipidemia: Code(s): E78.5 - Hyperlipidemia, unspecified Plan: Reviewed recent fasting lipid profile with patient with LDL cholesterol within normal limits but higher than last check . Continue atorvastatin 10mg daily , in addition to adherence to low-cholesterol diet and regular exercise, at least 30 minutes 3 to 4 times a week. Advised patient to make healthy food choices, eat more fruits, vegetables, whole grains, wild caught fish and low- fat dairy. Limit amount of meat and fried or fatty food products, as well as processed foods and fast foods. Follow-up scheduled with repeat fasting lipid panel in 4 months. Orders: Orders CA echo transthoracic complete 11/07/23 R01.1 - Cardiac murmur, unspecified Lipid Panel 02/12/24 E78.5 - Hyperlipidemia, unspecified, M85.88 - Other specified disorders of bone density and structure, other site Aspartate Amino Transferase 02/12/24 E78.5 - Hyperlipidemia, unspecified, M85.88 - Other specified disorders of bone density and structure, other site Pneumococcal 20 Immunization 11/07/23 Z23 - Encounter for immunization XR DEXA axial skeleton 02/12/24 E78.5 - Hyperlipidemia, unspecified, M85.88 - Other specified disorders of bone density and structure, other site, Z78.0 - Asymptomatic menopausal state Alanine Aminotransferase 02/12/24 E78.5 - Hyperlipidemia, unspecified, M85.88 - Other specified disorders of bone density and structure, other site Vitamin D 25-OH Total 02/12/24 E78.5 - Hyperlipidemia, unspecified, M85.88 - Other specified disorders of bone density and structure, other site Coding Level of Care Code Est Pt Level 4 (36949) Diagnoses Cardiac murmur R01.1 Osteopenia of lumbar spine M85.88 Dyslipidemia E78.5 Additional Codes Vital Signs *Quality* - Advance Care Planning discussion: Completed/Scanned ([id number]) Vital Signs *Quality* - Time spent: 16-45 minutes ([id number]) GRAYSON-7 Assessment Billing - GRAYSON-7 Assessment Tool: GRAYSON-7 Assessment 50283 ([id number])
== END 2023-11-07 11:19 | disposition home or self-care (01) ==
PROVIDERS: PCP Internal Medicine; Visit Provider Internal Medicine
DX: R01.1 Cardiac murmur, unspecified (principal); M85.88 Other specified disorders of bone density and structure, other site; E78.5 Hyperlipidemia, unspecified; Z00.00 Encounter for general adult medical examination without abnormal findings
CPT/HCPCS: 1123F; 90471; 90677; 99214; 99497

== ENCOUNTER → 2023-12-05 08:51 | Outpatient (REF) | payer MEDICARE, SELFPAY ==
--- NOTE | 2023-12-05 08:55 | CA_ITS ---
Transthoracic Echocardiogram Patient (Last, First, Middle): Adrianna Thomas A Gender: Female Date of : 1955 Age: 68 Procedure Date: 12/05/2023 Procedure Type: Transthoracic Echocardiogram Location: OP Height: 160.02 cm Weight: 61.69 kg BSA: 1.64 m2 Heart Rate: 55 bpm BP: 170 / 80 mmHg Packaging Mechanic: [id number] Referring MD: Lilliana Dyer MD Symptoms: R01.1 - Cardiac murmur, unspecified Study Quality: Adequate ECG Rhythm: Bradycardia Conclusions: - The left ventricular systolic function is normal. The calculated ejection fraction is 64% by biplane method. - There is mild aortic valve regurgitation. - There is mild mitral valve regurgitation. - There is mild dilatation of the ascending aorta measuring 3.80 cm. Findings Left Ventricle Normal left ventricular cavity size. There is normal left ventricular wall thickness. The left ventricular systolic function is normal. The calculated ejection fraction is 64% by biplane method. There is no evidence of regional wall motion abnormalities. Diastolic function is normal for age. LV peak GLS -18%. Right Ventricle Normal right ventricular cavity size and systolic function. Atria Both atria are normal in size. Aortic Valve There is a normal trileaflet aortic valve. There is no aortic valve stenosis. There is mild aortic valve regurgitation. Mitral Valve The mitral valve appears normal. There is mild mitral valve regurgitation. There is no mitral valve stenosis. Pulmonic Valve The pulmonic valve is likely normal. Tricuspid Valve There is trace tricuspid valve regurgitation. There is no evidence of pulmonary hypertension. Great Vessels There is mild dilatation of the ascending aorta measuring 3.80 cm. Venous The inferior vena cava collapses greater than 50% with inspiration. Inferior vena cava flow is normal. Pericardium/Pleural There is no evidence of pericardial effusion. Prior Study Comparison No prior study available for comparison. Measurements 2D Linear Measurements IVSd: 0.82 0.6-0.9/0.6-1.0 cm LVIDd: 4.78 3.9-5.3/4.2-5.9 cm LVIDd Index: 2.91 2.4-3.2/2.2-3.1 cm/m2 LVIDs: 2.53 2.0-3.6 cm LVPWd: 0.91 0.7-1.1 cm LA Diam: 3.30 2.7-3.8/3.0-4.0 cm LAIDs Index: 2.01 1.5-2.3 cm/m2 LV Mass: 172.82 67-162/88-224 g LV Mass Index: 105.38 43-95/49-115 g/m2 LVOT Diam: 1.90 3.0+(-)1.3 cm 2D Systolic Function EF 4C: 64.00 >55% EF 2C: 60.90 >55% EF BiP: 63.70 >55% Mitral Valve MV Pk E: 0.60 MV PK A: 0.86 MV Decel Time: 283.00 E/A: 0.70 E'Lateral: 8.81 E'Medial: 3.59 E/E' Med: 16.60 E/E' Lat: 6.80 PHT: 83.00 MVA PHT: 2.65 Decel [place]: 2.10 Aortic Valve AoV Pk Andrade: 1.65 AoV Mn Andrade: 1.14 AoV VTI: 0.38 AoV Pk Grad: 11.00 Aov Mn Grad: 6.00 JUAN J Cont.VTI: 1.86 AI Pk Andrade: 4.82 AI [place]: 2.03 LVOT LVOT Pk Andrade: 1.05 LVOT Mn Andrade: 0.74 LVOT VTI: 0.25 LVOT Pk Grad: 4.00 LVOT Mn Grad: 3.00 LVOT Diam: 1.90 LVOT Area: 2.84 Diastolic Function MV Pk E: 0.60 MV Pk A: 0.86 E/A: 0.70 E'Medial: 3.59 E/E' Med: 16.60 E' Laterial: 8.81 E/E' Lat: 6.80 Right Ventricle TAPSE (mm): 22.30 TVS' Andrade: 10.60 Tricuspid Valve TR Pk Andrade: 1.82 TR Pk Grad: 13.00 RA Press: 3.00 RVSP: 16.00 Great Vessels Aorta Sinus of Valsalva: 3.30 2.0-3.5 cm Ao Asc: 3.80 2.1-3.4 cm Ao Arch: 2.10 Pulmonary Valve PV Pk Andrade: 0.88 Peak PV Grad: 3.00 Updated in Other Vendor System with Status of Final Bc Ramos MD electronically signed on 12/09/2023 11:15:38 AM with status of Final
== END ==
LOC: HO.CARD 08:51
PROVIDERS: PCP Internal Medicine; Visit Provider Internal Medicine
DX: R01.1 Cardiac murmur, unspecified (principal)
CPT/HCPCS: 93306; 93356

== ENCOUNTER → 2023-12-05 08:55 | Outpatient (BNV) | payer MEDICARE, SELFPAY | PROVIDERS: PCP Internal Medicine; Visit Provider Internal Medicine | DX: I35.1 Nonrheumatic aortic (valve) insufficiency (principal); I34.0 Nonrheumatic mitral (valve) insufficiency | CPT/HCPCS: 93306; 93356 ==

== ENCOUNTER 2024-03-05 07:02 | Outpatient (REF) | payer MEDICARE, SELFPAY ==
[2024-03-05 10:45] LABS: Alanine Aminotransferase 13 U/L (0-31); Aspartate Amino Transferase 19 U/L (5-31); Cholesterol 184 mg/dL (<200); HDL Cholesterol 63 mg/dL (>40); LDL Cholesterol Calculated 102 mg/dL (<100); Triglycerides 96 mg/dL (<150)
[2024-03-05 11:04] LABS: Vitamin D 25-OH Total 105.2 ng/mL (>30)
== END 2024-03-05 07:03 | disposition home or self-care (01) ==
LOC: HO.HMGCLDS 07:02
PROVIDERS: PCP Internal Medicine; Visit Provider Internal Medicine
DX: M85.88 Other specified disorders of bone density and structure, other site (principal); E78.5 Hyperlipidemia, unspecified
CPT/HCPCS: 36415; 80061; 82306; 84450; 84460

== ENCOUNTER 2024-03-12 09:44 | Outpatient (AMB) | payer MEDICARE, SELFPAY ==
--- NOTE | 2024-03-12 09:42 | A.OFFPC_ITS ---
Intake Visit Reasons: discuss lab results andriod [phone] Allergies No Known Allergies Allergy (Verified 03/12/24 10:05) Medication List - Last Reconciled 03/12/24 by Lilliana Dyer MD atorvastatin 10 mg PO DAILY cholecalciferol (vitamin D3) 50 mcg PO DAILY raloxifene 60 mg PO DAILY Tobacco use date assessed: 03/12/24 Fall risk assessment: No Falls in past year Last assessed Fall Risk: 03/12/24 Dental Screening Dental Screen Date: 03/12/24 Did you have a dental visit in the last 12 months?: Yes Did you have a dental problem in the last 6 months where you did not have access to dental care?: No Was dental information given to patient?: Patient has dentist HPI discuss lab results andriod [phone] HPI Details 68-year-old lady with dyslipidemia, cur rently on atorvastatin 10 mg daily, compliant with low-cholesterol diet and has been getting regular exercise. She also has osteopenia in the lumbar spine currently on raloxifene 60 mg daily and has been taking vitamin-D 3 at 50 mcg daily. She already has an appointment for repeat bone density scan scheduled for 10/29/2024, to be done together with her screening mammogram. Recent fasting labs showed lipids, fasting glucose, lipids electrolytes , liver enzymes, and renal function are within normal limits. [facility] Medical History Tubular adenoma of colon Osteopenia of lumbar spine Dyslipidemia Surgical History Hx of colonoscopy History of partial hysterectomy Family History Father Heart disease CAD (coronary artery disease) Hx of CABG Mother Arthritis Sister Breast cancer Ovarian cancer Sister CAD (coronary artery disease) Sister No problems noted. Brother No problems noted. Brother No problems noted. Brother Diabetes mellitus Brother Diabetes mellitus Social History Housing: House Alcohol intake: never Patient Tobacco Use Status: Former Tobacco user Tobacco use type: Cigarette Cigarette Packs Per Day: 1.5 Cigarettes Per Day: 10 Years Smoked: 15 Packs Per Year: 23 Packs per year/per ci.50 e-Cigarette/Vaping Use: Never Used Second Hand Smoke Exposure: No service: No Current occupational status: employed Cognitive needs: No Hearing needs: No Vision needs: No Questionnaire Thrive Questionnaire Date Thrive assessed: 11/07/23 GRAYSON-7 AMB Questionnaire GRAYSON-7 Date GRAYSON - 7 assessed: 11/07/23 Source: Developed by Drs. Xavi Garcia, Aide Sheehan, Chavo Sewell and colleagues, with an educational yordan from [employer]. Review of Systems Const Denies body aches, Denies fatigue, Denies fever(s) and Denies weakness Eyes Details: sees Vin[place]orgiar[place]le Jason in [facility] with eye exam Denies change in vision ENT Reports no additional complaints Card Denies chest pain, Denies lightheadedness, Denies palpitations and Denies dyspnea Resp Denies chest congestion, Denies cough and Denies dyspnea GI Denies abdominal pain, Denies change in bowel habits and Denies heartburn Denies urinary frequency, Denies dysuria and Denies urinary urgency Musc Reports no additional complaints Skin/Breast Denies lesions and Denies rash Neuro Denies weakness Psych Reports no additional complaints Endo Denies fatigue, Denies polydipsia, Denies polyuria and Denies palpitations Duane/Lymph Denies easy bruising Aller/Immun Denies seasonal rhinorrhea Physical exam (Primary Care) Tobacco/Smoking Status: Tobacco use Status Tobacco use date assessed 03/12/24 03/12/24 09:43 Patient Tobacco Use Status Former Tobacco user 03/12/24 09:43 Tobacco use type Cigarette 03/12/24 09:43 e-Cigarette/Vaping Use Never Used 03/12/24 09:43 Thrive Assessment: Date of Thrive Assessment Date Thrive assessed 11/07/23 03/12/24 09:43 Telehealth Telehealth Telehealth Platform: [facility] Location of provider rendering services: practice address Location of patient: address on file Patient Identification confirmed using: Name, : Yes Telehealth method: video Patient verbally consented to treatment: Yes Patient verbally consented to billing insurance company: Yes Patient informed of any privacy concerns related to visit: Yes Minutes spent on Phone/Video with Pt.: 15 Results Reviewed Results Reviewed: Name: William,Adrianna A Age/Sex: 68/F [facility] 1955 [id number] [id number] Attend Dr: Lilliana Dyer MD Re03/05/24 Status: DEP REF Location: [facility] Disch: SPEC : [id number] MARIBEL: 03/05/24 STATUS: COMP REQ : [id number] RECD: 03/05/24-[address]: Lilliana Dyer MD COMP: 03/05/24 ENTERED: 03/05/[address]: ORDERED: AST, ALT, Lipid Panel, Vitamin D 25-OH Test Result Flag Reference AST (GOT) 19 5-31 U/L ALT (GPT) 13 0-31 U/L Triglyceride 96 <150 mg/dL Desirable Triglyceride: less than 150 mg/dL Borderline High Triglyceride 150-199 mg/dL High Triglyceride: 200-499 mg/dL Very High Triglyceride: greater than or equal to 5OO mg/dL Cholesterol 184 <200 mg/dL Desirable Cholesterol: less than 200 mg/dL Borderline High Cholesterol: 200-239 mg/dL High Cholesterol: greater than 239 mg/dL LDL Calculated 102 H <100 mg/dL Desirable LDL: less than 100 mg/dL Near Optimal/Above Optimal LDL: 110-129 mg/dL Borderline High LDL: 130-159 mg/dL High LDL: 160-189 mg/dL Very High LDL: greater than or equal to 190 mg/dL HDL 63 >40 mg/dL Desirable HDL: greater than 40 mg/dL Note: This HDL assay may give artificially low results in patients with liver disease. Vit D 25-OH Tot 105.2 >30 ng/mL Health Based Reference Values* < 20 ng/mL Deficient 20-30 ng/mL Insufficient > 30 ng/mL Sufficient Assessment and Plan Assessment & Plan (1) Dyslipidemia: Code(s): E78.5 - Hyperlipidemia, unspecified Plan: Recent fasting lipids are within normal limits, continue with atorvastatin 10 mg daily (2) Osteopenia of lumbar spine: Comment: DEXA scan 2021, showed a T-score of-2.0 and lumbar spine, normal in hips and left femoral neck Code(s): M85.88 - Other specified disorders of bone density and structure, other site Plan: Continue with vitamin-D 3 supplements, in addition to doing regular weight- bearing exercise, and taking adequate calcium from dietary sources, continued on raloxifene 60 mg daily, already has an appointment for repeat bone density scan next year, scheduled together with screening mammogram (3) Elevated blood pressure reading: Code(s): R03.0 - Elevated blood-pressure reading, without diagnosis of hypertension Plan: Continue with low-salt diet, continue regular exercise, keep appointment with nurse navigator to recheck blood pressure on 03/25/2024 Orders: Orders Basic Metabolic Panel Fasting 09/11/24 E78.5 - Hyperlipidemia, unspecified, M85.88 - Other specified disorders of bone density and structure, other site, R03.0 - Elevated blood-pressure reading, without diagnosis of hypertension Aspartate Amino Transferase 09/11/24 E78.5 - Hyperlipidemia, unspecified, M85.88 - Other specified disorders of bone density and structure, other site, R03.0 - Elevated blood-pressure reading, without diagnosis of hypertension Lipid Panel 09/11/24 E78.5 - Hyperlipidemia, unspecified, M85.88 - Other specified disorders of bone density and structure, other site, R03.0 - Elevated blood-pressure reading, without diagnosis of hypertension Alanine Aminotransferase 09/11/24 E78.5 - Hyperlipidemia, unspecified, M85.88 - Other specified disorders of bone density and structure, other site, R03.0 - Elevated blood-pressure reading, without diagnosis of hypertension Vitamin D 25-OH Total 09/11/24 E78.5 - Hyperlipidemia, unspecified, M85.88 - Other specified disorders of bone density and structure, other site, R03.0 - Elevated blood-pressure reading, without diagnosis of hypertension Coding Level of Care Code Tele Est Pt Level 4 (69240) Diagnoses Dyslipidemia E78.5 Osteopenia of lumbar spine M85.88 Elevated blood pressure reading R03.0
== END 2024-03-12 12:20 | disposition home or self-care (01) ==
LOC: HO.HMGC 09:44
PROVIDERS: PCP Internal Medicine; Visit Provider Internal Medicine
DX: E78.5 Hyperlipidemia, unspecified (principal); M85.88 Other specified disorders of bone density and structure, other site; R03.0 Elevated blood-pressure reading, without diagnosis of hypertension
CPT/HCPCS: 99214

== ENCOUNTER 2024-10-28 06:01 | Outpatient (REF) | payer MEDICARE, SELFPAY ==
--- OUTSIDE RECORDS SUMMARY | 2024-10-28 06:04 | XMS_ITS | Patient Health Record ---
Author Organization [facility] Address [address] [place] [address] Care Team Providers Care Skull Chopper Name Role Phone Gomez POLLARD, Lilliana Primary Care Provider Manny Flowers Jr Unavailable [phone] Reason For Referral No Information Medications Medication SIG (Take, Route, Frequency, Duration) Notes Start Date End Date Status MiraLax (colon prep) 17 GM/SCOOP mixed with Gatorade or Crystal Light Orally begin at 5:00 p.m. the day before the procedure for 1 day 04/26/2021 Active Vitamin D 1000 UNIT 1 tablet Orally Once a day Active Atorvastatin Calcium 10 MG 1 tablet Oral ly Once a day Active Raloxifene HCl Activ e Immunizations Vaccine Route Administration Date Status Comme nts Influenza Unknown 04/13/2021 Administered Problems Problem Type SNOMED Code ICD Code Onset Dates Problem Status W/U Status Risk Notes Problem 528386308 Colon cancer screening (Z12.11) Active confirmed Problem 83755830 Rectal bleeding (K62.5) Active confirmed Problem 139122178 Gastro-esophagea l reflux disease without esophagitis (K21.9) Active confirmed Plan Of Treatment Future Test Test Name Order Date COLONOSCOPY 01/24/2016 COLONOSCOPY 04/26/2021 Insurance Providers Payer Name Payer Address Payer Phone Subscriber Number Group Number Insured Name Patient Relationship to Insured Coverage Start Date Coverage End Date [place] [address] [place] [address] [id number] RENNY MEZA Self - patient is the insured [facility] Insurance [address] [address] [place] [phone] [id number] RENNY MEZA Self - patient is the insured Medical (General) History Medical History History ICD Code Colon polyps, colonoscopy 07/12/16, tubu lar adenoma, five-year followup elevated cholesterol Osteopenia Surgical History Surgery Date(Month/Year) Hysterectomy benign breast biopsy
[2024-10-28 10:55] LABS: Alanine Aminotransferase 17 U/L (0-31); Anion Gap 10 (12-20); Aspartate Amino Transferase 23 U/L (5-31); Blood Urea Nitrogen 15 mg/dL (9-16); Carbon Dioxide 29 mmol/L (22-29); Chloride 107 mmol/L (96-108); Cholesterol 168 mg/dL (<200); Estimated Glomerular Filt Rate > 60; Glucose Fasting 104 mg/dL (60-99); HDL Cholesterol 54 mg/dL (>40); LDL Cholesterol Calculated 101 mg/dL (<100); Potassium 3.9 mmol/L (3.3-5.1); Sodium 142 mmol/L (135-145); Triglycerides 68 mg/dL (<150)
[2024-10-28 11:10] LABS: Vitamin D 25-OH Total 72.8 ng/mL (>30)
== END 2024-10-28 06:02 | disposition home or self-care (01) ==
LOC: HO.HMGCLDS 06:01
PROVIDERS: PCP Internal Medicine; Visit Provider Internal Medicine
DX: M85.88 Other specified disorders of bone density and structure, other site (principal); E78.5 Hyperlipidemia, unspecified; R03.0 Elevated blood-pressure reading, without diagnosis of hypertension
CPT/HCPCS: 36415; 80048; 80061; 82306; 84450; 84460

== ENCOUNTER 2024-10-29 09:41 | Outpatient (REF) | payer MEDICARE, SELFPAY ==
--- NOTE | ~2024-10-29 | MM_ITS ---
EXAMINATION: DXA BONE DENSITY AXIAL HISTORY: M85.88 - Other specified disorders of bone density and structure, other ... TECHNIQUE: NOZA Dual energy absorptiometry (DEXA) of the lumbar spine, total left hip, and femoral neck was performed. COMPARISON: Comparison is made with the prior examination dated 05/24/2022. FINDINGS: The bone mineral density of the lumbar spine is 0.952 with a T-score of -1.9, and a Z-score of -0.1. This is indicative of osteopenia. This represents a BMD change of 1.8% compared to the prior exam. This is not statistically significant. The bone mineral density of the left total hip is 0.938 with a T-score of -0.6, and a Z-score of 1.1. This is indicative of normal bone mineral density. This represents a BMD change of 1.2% compared to the prior exam. This is not statistically significant. The bone mineral density of the left femoral neck is 0.976 with a T-score of -0.4, and a Z-score of 1.4. This is indicative of normal bone mineral density. This represents a BMD change of 0.0% compared to the prior exam. FRACTURE RISK: The FRAX index suggests a ten year probability of major osteoporotic fracture of 11.9%, and of hip fracture 1.7%. MM/XR DEXA axial skeleton IMPRESSION: Based on bone mineral density, and according to World Health Organization (WHO) criteria, the diagnosis is consistent with osteopenia. All bone density values are in grams per centimeter squared (g/cm2). Statistically, 68% of repeat scans fall within 1 SD (+/- 0.010 g/cm2 for AP spine L1-L4) and 1 SD (+/- 0.012 g/cm2 for femur total) FRAX is a trademark of the [employer] [facility] Met[employer] Disease, a World Health Organization (WHO) Collaborating Center. Electronically signed by: Xavi Bhandari MD 10/29/2024 10:19 AM EDT
--- OUTSIDE RECORDS SUMMARY | 2024-10-29 10:20 | XMS_ITS | Patient Health Record ---
Author Organization [facility] Address [address] [place] [address] Care Team Providers Care Surveyor'S Assistant Name Role Phone Gomez POLLARD, Lilliana Primary Care Provider Manny Flowers Jr Unavailable Reason For Referral No Information Medications Medication [...] Problem Status W/U Status Risk Notes Problem 619684000 Colon cancer screening (Z12.11) Active confirmed Problem 86403051 Rectal bleeding (K62.5) Active confirmed Problem 894740859 Gastro-esophagea l reflux disease without esophagitis (K21.9) Active confirmed Plan Of Treatment Future Test Test Name Order Date COLONOSCOPY 01/24/2016 COLONOSCOPY 04/26/2021 Insurance Providers Payer Name Payer Address Payer Phone Subscriber Number Group Number Insured Name Patient Relationship to Insured Coverage Start Date Coverage End Date [place] [address] [place] [address] [id number] RENNY MEZA Self - patient is the insured [facility] Insurance [address] [place] [phone] [id number] RENNY MEZA Self - patient is the insured Medical (General) History Medical History History ICD Code Colon polyps, colonoscopy 07/12/16, tubu lar adenoma, five-year followup elevated cholesterol Osteopenia Surgical History Surgery Date(Month/Year) Hysterectomy benign breast biopsy
== END 2024-10-29 09:42 | disposition home or self-care (01) ==
LOC: HO.MAMMO 09:41
PROVIDERS: PCP Internal Medicine; Visit Provider Internal Medicine
DX: Z12.31 Encounter for screening mammogram for malignant neoplasm of breast (principal); Z13.820 Encounter for screening for osteoporosis; M85.88 Other specified disorders of bone density and structure, other site; Z78.0 Asymptomatic menopausal state; E78.5 Hyperlipidemia, unspecified
CPT/HCPCS: 77063; 77067; 77080

== ENCOUNTER → 2024-10-29 10:00 | Outpatient (BNV) | payer MEDICARE, SELFPAY | PROVIDERS: PCP Internal Medicine; Visit Provider Radiology Diagnostic Radiology | DX: E28.39 Other primary ovarian failure (principal) | CPT/HCPCS: 77080 ==

== ENCOUNTER 2024-11-04 14:22 | Outpatient (AMB) | payer MEDICARE, SELFPAY ==
--- NOTE | 2024-11-04 14:26 | A.OFFPC_ITS ---
Vital Signs 11/04/24 14:30 Height 5 ft 3 in Weight 137 lb BMI 24.3 BP 130/80 Blood Pressure Location Lt brachial Position Sitting Respiration 16 Pulse 67 Pulse Source Pulse Oximeter Temp 98.0 F Temp Source Oral Pulse Oximetry (%) 98 Oxygen Delivery Method Room Air Intake Visit Reasons: Annual PE Ok per AE Intake Note: Pt is here today for her PE: last mammogram 10/29/24, bone density scan 10/29/24, colonoscopy 06/15/21 Allergies No Known Allergies Allergy (Verified 11/04/24 14:54) Medication List - Last Reconciled 11/04/24 by Lilliana Dyer MD atorvastatin 10 mg PO DAILY cholecalciferol (vitamin D3) 50 mcg PO DAILY raloxifene 60 mg PO DAILY Tobacco use date assessed: 11/04/24 Fall risk assessment: No Falls in past year Last assessed Fall Risk: 11/04/24 Dental Screening Dental Screen Date: 11/04/24 Did you have a dental visit in the last 12 months?: Yes Did you have a dental problem in the last 6 months where you did not have access to dental care?: No Was dental information given to patient?: Patient has dentist HPI Annual PE Ok per AE HPI Details 69-year-old lady with history of hyperli pidemia, and mild osteopenia, here today for her physical exam and follow-up. She has been feeling well, compliant with taking her medications and has been exercising regularly, has been trying to cook her own meals, eating more fruits and vegetables and fish and low fat meat. Latest fasting labs showed improvement in her lipids and glucose levels. She had a screening mammogram done earlier with results still pending, both bone density scan done at the same time showed mild osteopenia in lower back and left hip, no significant change from previous testing done. She is up-to-date with her screening colonoscopy due again for recheck in 2025 due to presence of tubular adenoma removed on last check. Up-to-date with her pneumonia vaccine, gets yearly flu shot, but does not want to get further COVID vaccine up-to-date with her shingles vaccination but declines RSV . Reminded that she is due for her tetanus diphtheria booster [facility] Medical History Tubular adenoma of colon Osteopenia of lumbar spine Dyslipidemia Surgical History Hx of colonoscopy History of partial hysterectomy Family History Father Heart disease CAD (coronary artery disease) Hx of CABG Mother Arthritis Sister Breast cancer Ovarian cancer Sister CAD (coronary artery disease) Sister No problems noted. Brother No problems noted. Brother No problems noted. Brother Diabetes mellitus Brother Diabetes mellitus Social History Housing: House Alcohol intake: never Patient Tobacco Use Status: Former Tobacco user Tobacco use type: Cigarette Cigarette Packs Per Day: 1.5 Cigarettes Per Day: 10 Years Smoked: 15 e-Cigarette/Vaping Use: Never Used Second Hand Smoke Exposure: No service: No Current occupational status: employed Cognitive needs: No Hearing needs: No Vision needs: No Questionnaire PHQ-9 Over the last 2 weeks, how often have you been bothered by any of the following problems? 1. Little interest or pleasure in doing things: not at all 2. Feeling down, depressed, or hopeless: not at all 3. Trouble falling or staying asleep, or sleeping too much: not at all 4. Feeling tired or having little energy: not at all 5. Poor appetite or overeating: not at all 6. Feeling bad about yourself - or that you are a failure or have let yourself or your family down: not at all 7. Trouble concentrating on things, such as reading the newspaper or watching television: not at all 8. Moving or speaking so slowly that other people could have noticed. Or the opposite - being so fidgety or restless that you have been moving around a lot more than usual: not at all 9. Thoughts that you would be better off or of hurting yourself in some way: not at all Total score: 0 Depression Screening Interpretation: Negative Depression Screening Done: Yes 01730 - PHQ-9 Billing: Yes Source: Developed by Drs. Xavi Garcia, Aide Sheehan, Chavo Sewell and colleagues, with an educational yordan from [employer]. Thrive Questionnaire Date Thrive assessed: 10/28/24 I am a: Patient What is your living situation today?: I have a steady place to live Within the past 12 months, did the food you bought not last and you didn't have the money to get more?: Never true Within the past 12 months, did you worry whether your food would run out before you got money to buy more?: Never true Do you have trouble paying for medicines?: No Do you have trouble getting transportation to medical appointments?: No Do you have trouble paying your heating and electricity bill?: No Do you have trouble taking care of your child, family member or friend?: I choose not to answer this question Do you have trouble with day-to-day activities such as bathing, preparing meals, shopping, managing finances, etc.?: No Are you currently unemployed and looking for a job?: No Are you interested in more education?: No Please select the resources that you would like help with: None Currently or been in a relationship where the following occur: No concerns reported THRIVE Score: 0 AUDIT C Alcohol Use Questionnaire (AUDIT-C) 1. How often do you have a drink containing alcohol?: Never 2. How many drinks containing alcohol do you have on a typical day when you are drinking?: 1 or 2 3. How often do you have six or more drinks on one occasion?: Never Total Score: 0 GRAYSON-7 AMB Questionnaire GRAYSON-7 Date GRAYSON - 7 assessed: 11/07/23 Feeling nervous, anxious, or on edge: 0 = Not at all Not being able to stop or control worryin = Not at all Worrying too much about different things: 0 = Not at all Trouble relaxin = Not at all Being so restless that it is hard to sit still: 0 = Not at all Becoming easily annoyed or irritable: 0 = Not at all Feeling afraid as if something awful might happen: 0 = Not at all Total GRAYSON-7 score (0-4 normal; 5-9 mild; 10-14 moderate; 15-21 severe): 0 Source: Developed by Drs. Xavi Garcia, Aide Sheehan, Chavo Sewell and colleagues, with an educational yordan from [employer]. GRAYSON-7 Assessment Billing GRAYSON-7 Assessment Tool: GRAYSON-7 Assessment 53877 Review of Systems Const Denies body aches, Denies fatigue, Denies fever(s) and Denies weakness Eyes Details: sees Zoie Jason in [place] , [facility] with eye exam Denies change in vision ENT Reports no additional complaints Card Denies chest pain, Denies lightheadedness, Denies palpitations and Denies d yspnea Resp Denies chest congestion, Denies cough and Denies dyspnea GI Denies abdominal pain, Denies change in bowel habits and Denies heartburn Denies urinary frequency, Denies dysuria and Denies urinary urgency Musc Reports no additional complaints Skin/Breast Denies lesions and Denies rash Neuro Denies weakness Psych Reports no additional complaints Endo Denies fatigue, Denies polydipsia, Denies polyuria and Denies palpitations Duane/Lymph Denies easy bruising Aller/Immun Denies seasonal rhinorrhea Physical exam (Primary Care) Vital Signs: Last Vital Signs Temp 98.0 F 11/04/24 14:30 Pulse 67 11/04/24 14:30 Resp 16 11/04/24 14:30 BP 130/80 11/04/24 14:30 Pulse Ox 98 11/04/24 14:30 Oxygen Delivery Method Room Air 11/04/24 14:30 BMI result Body Mass Index 24.3 Tobacco/Smoking Status: Tobacco use Status Tobacco use date assessed 11/04/24 11/04/24 14:29 Patient Tobacco Use Status Former Tobacco user 11/04/24 14:29 Tobacco use type Cigarette 11/04/24 14:29 e-Cigarette/Vaping Use Never Used 11/04/24 14:29 PHQ-9: PHQ-9 Score PHQ-9: Total score 0 11/04/24 14:59 Depression Screening Interpretation: Negative Thrive Assessment: Date of Thrive Assessment Date Thrive assessed 10/28/24 11/04/24 14:29 Currently or been in a relationship where the following occur: No concerns reported Const Other: Alert oriented x3, no acute distress, ambulatory normal gait Orientation/consciousness: patient oriented x3 HENNE Head: Yes atraumatic Ears: external ears normal, TM's normal bilaterally and EAC's normal General nose exam: Normal external nose present Face and sinus: Yes face symmetric Mouth: Normal oral and palatal mucosa present and moist mucous membranes Teeth and gingiva: dentures (Upper) Eyes General: appearance normal, both eyes and all related structures Neck Neck: Yes full ROM, Yes no lymphadenopathy and Yes supple Thyroid: Thyroid normal Chest Chest palpation & inspection: normal inspection of the chest Breast/axilla palpation: normal palpation of the breasts and normal palpation of the axillae Resp Effort & Inspection: normal respiratory effort and able to speak in complete sentences Auscultation: clear to auscultation bilaterally Cardio Palpation: normal PMI Rate: regular rate Rhythm: regular rhythm Heart sounds: S1 normal heart sound present and S2 normal heart sound present GI Palpation (GI): Soft to palpation, nontender, no guarding and no masses Auscultation: normal bowel sounds General: Yes deferred Back/Spine/Pelvis Back: No back tenderness Skin General skin exam: no rashes or lesions noted Neuro General: patient oriented x3, gait normal, moves all extremities, Normal light touch and pain sensation, no focal motor deficits and CN's II-XI intact bilaterally Extrem General: Yes full ROM, Yes no joint enlargement, Yes no pedal edema and Yes normal gait Psych Appearance: grossly normal and well kempt Mental Status: mental status grossly normal Speech and movement: Normal speech and movement present Affect: normal affect Attitude: cooperative Thought process: Normal thought process present Results Reviewed Results Reviewed: Name: Adrianna Thomas Age/Sex: 69/F : 1955 Unit#: [id number] Attend Dr: Lilliana Dyer MD Re10/28/24 Status: DEP REF Location: [facility] Disch: SPEC : [id number] MARIBEL: 10/28/24 STATUS: COMP REQ : [id number] RECD: 10/28/24-[address]: Lilliana Dyer MD COMP: 10/28/24-1110 ENTERED: 10/28/24-[address]: ORDERED: Met Prof Fast, AST, ALT, Lipid Panel, Vitamin D 25-OH Test Result Flag Reference Sodium 142 135-145 mmol/L Potassium 3.9 3.3-5.1 mmol/L CL 107 96-108 mmol/L CO2 29 22-29 mmol/L Gap 10 L 12-20 BUN 15 9-16 mg/dL Creat 0.67 0.5-1.4 mg/dL eGFR > 60 Chronic Kidney Disease: Estimated GFR < 60 mL/min/1.73m2 Severe Kidney Disease: Estimated GFR < 15 mL/min/1. 73m2 FBS 104 H 60-99 mg/dL A fasting glucose from 100-125 mg/dl is considered impaired (pre-diabetes). CA 9.0 8.4-10.2 mg/dL AST (GOT) 23 5-31 U/L ALT (GPT) 17 0-31 U/L Triglyceride 68 <150 mg/dL Desirable Triglyceride: less than 150 mg/dL Borderline High Triglyceride 150-199 mg/dL High Triglyceride: 200-499 mg/dL Very High Triglyceride: greater than or equal to 5OO mg/dL Cholesterol 168 <200 mg/dL Desirable Cholesterol: less than 200 mg/dL Borderline High Cholesterol: 200-239 mg/dL High Cholesterol: greater than 239 mg/dL LDL Calculated 101 H <100 mg/dL Desirable LDL: less than 100 mg/dL Near Optimal/Above Optimal LDL: 110-129 mg/dL Borderline High LDL: 130-159 mg/dL High LDL: 160-189 mg/dL Very High LDL: greater than or equal to 190 mg/dL HDL 54 >40 mg/dL Desirable HDL: greater than 40 mg/dL Note: This HDL assay may give artificially low results in patients with liver disease. Vitamin D 25-OH 72.8 >30 ng/mL Health Based Reference Values* < 20 ng/mL Deficient 20-30 ng/mL Insufficient > 30 ng/mL Sufficient Coding Level of Care Code Est Pt Prev Care >65y(95091) Diagnoses Annual visit for general adult medical examination with abnormal findings Z. Dyslipidemia E78.5 Osteopenia of lumbar spine M85.88 Additional Codes GRAYSON-7 Assessment Billing - GRAYSON-7 Assessment Tool: GRAYSON-7 Assessment 69932 ([id number]) PHQ-9 - 13449 - PHQ-9 Billing: Yes ([id number]) Assessment & Plan Assessment & Plan (1) Annual visit for general adult medical examination with abnormal findings: Code(s): Z00.01 - Encounter for general adult medical examination with abnormal findings Plan: Discuss recent fasting lab results with patient. Continue with regular dental exam and cleaning six-month she sees Martita Jason OD in [facility] for routine eye exam Instructed to do self-breast exam, and continue yearly mammogram, latest test results are still pending up-to-date bone density scan up-to-date with all her vaccinations but does not want to get shingles or RSV vaccine. Up-to-date with his screening for colon cancer, due again for repeat colonoscopy with Dr. Bates in 2025 (2) Dyslipidemia: Code(s): E78.5 - Hyperlipidemia, unspecified Category: Medical Plan: Reviewed recent fasting lipid profile with patient with levels within normal . Continue atorvastatin 10 mg daily , in addition to adherence to low- cholesterol diet and regular exercise, at least 30 minutes 3 to 4 times a week. Advised patient to make healthy food choices, eat more fruits, vegetables, whole grains, wild caught fish and low-fat dairy. Limit amount of meat and fried or fatty food products, as well as processed foods and fast foods. Follow-up scheduled with repeat fasting lipid panel in 1 year (3) Osteopenia of lumbar spine: Comment: DEXA scan 2021, showed a T-score of-2.0 and lumbar spine, normal in hips and left femoral neck Code(s): M85.88 - Other specified disorders of bone density and structure, other site Category: Medical Plan: Reviewed latest bone density scan results with patient which showed was unchanged from previous 1 showed osteopenia. Continue with regular weight- bearing exercise, continue with vitamin-D 3 supplements 50 mcg daily, repeat bone density scan in 2 years. Orders: Orders Vitamin D 25-OH Total 1 Year E78.5 - Hyperlipidemia, unspecified, M85.88 - Other specified disorders of bone density and structure, other site, Z13.1 - Encounter for screening for diabetes mellitus Lipid Panel 1 Year E78.5 - Hyperlipidemia, unspecified, M85.88 - Other specified disorders of bone density and structure, other site, Z13.1 - Encounter for screening for diabetes mellitus Basic Metabolic Panel Fasting 1 Year E78.5 - Hyperlipidemia, unspecified, M85.88 - Other specified disorders of bone density and structure, other site, Z13.1 - Encounter for screening for diabetes mellitus Aspartate Amino Transferase 1 Year E78.5 - Hyperlipidemia, unspecified, M85.88 - Other specified disorders of bone density and structure, other site, Z13.1 - Encounter for screening for diabetes mellitus Alanine Aminotransferase 1 Year E78.5 - Hyperlipidemia, unspecified, M85.88 - Other specified disorders of bone density and structure, other site, Z13.1 - Encounter for screening for diabetes mellitus Medications: Refilled raloxifene 60 mg PO DAILY 90 caps 4RF atorvastatin 10 mg PO DAILY 90 caps 4RF
[2024-11-04 14:30] VITALS: BP 130/80; PULSE 67; RESP 16; TEMP 36.7; O2SAT 98; BMI 24.3
== END 2024-11-04 14:55 | disposition home or self-care (01) ==
LOC: HO.HMCC 14:23
PROVIDERS: PCP Internal Medicine; Visit Provider Internal Medicine
DX: Z00.01 Encounter for general adult medical examination with abnormal findings (principal); E78.5 Hyperlipidemia, unspecified; M85.88 Other specified disorders of bone density and structure, other site

== ENCOUNTER → 2024-11-04 14:22 | Outpatient (BNVA) | payer MEDICARE, SELFPAY | PROVIDERS: PCP Internal Medicine; Visit Provider Internal Medicine | DX: Z00.01 Encounter for general adult medical examination with abnormal findings (principal); E78.5 Hyperlipidemia, unspecified; M85.88 Other specified disorders of bone density and structure, other site; Z87.891 Personal history of nicotine dependence | CPT/HCPCS: 96127; 99397 ==